=== PATIENT | female | born 1955 | race African-American/Black ===

== ENCOUNTER 2021-12-09 13:42 | Emergency (ER) | payer BC, OTHER ==
[~2021-12-09] VITALS: Ht 162.6 cm; Wt 106.0 kg
[~2021-12-09 13:42] MED LIST: INSULIN
[2021-12-09 13:44] VITALS: BP 180/82
[2021-12-09 14:51] LABS: BASOPHILS % 0.3 % (0.0-2.0); EOSINOPHILS % 3.3 % (0.0-5.0); HEMATOCRIT. 30.6 % (36.0-48.0); HEMOGLOBIN. 9.7 g/dL (12.0-16.0); LYMPHOCYTES % 19.6 % (20.0-50.0); MEAN CORPUSCULAR HEMOGLOBIN 23.9 pg (28.0-32.0); MEAN CORPUSCULAR VOLUME 75.7 fL (81.0-99.0); MONOCYTES % 9.6 % (2.0-8.0); NEUTROPHILS % 67.2 % (40.0-76.0); PLATELET 280 x1000/uL (130-400); RED BLOOD CELL COUNT 4.04 mill/uL (4.2-5.4); RED CELL DISTRIBUTION WIDTH 15.7 % (11.6-14.6)
[2021-12-09 14:53] LABS: CHLORIDE 103 mEq/L (98-107)
[2021-12-09] MEDS ORDERED: SODIUM CHLORIDE 0.9% 1,000 ML IV ONE (15:15)
[2021-12-09] MEDS ORDERED: CYCLOBENZAPRINE 10MG TABLET PO STA (16:16)
[2021-12-09] MEDS ORDERED: METH-653 MT (16:18)
== END 2021-12-09 17:54 | disposition home or self-care (01) ==
LOC: ER 13:42
DX: S20.212A Contusion of left front wall of thorax, initial encounter (principal); S63.591A Other specified sprain of right wrist, initial encounter; N17.9 Acute kidney failure, unspecified; I10 Essential (primary) hypertension; V43.52XA Car driver injured in collision with other type car in traffic accident, initial encounter; Y93.89 Activity, other specified; Y92.488 Other paved roadways as the place of occurrence of the external cause
CPT/HCPCS: 36415; 71045; 80053; 83880; 84484; 85025; 93005; 99285; J7030